=== PATIENT | female | born 1995 | race Caucasian/White ===

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

== ENCOUNTER 2017-03-20 11:33 | Emergency (ER) | payer OTHER, MEDICAID ==
[2017-03-20 11:49] VITALS: RESP 16
--- NOTE | 2017-03-20 12:28 | EDPHY ---
H & P Time Seen by Provider: 03/20/17 11:53 HPI/ROS: CHIEF COMPLAINT: Abdominal pain, diarrhea HISTORY OF PRESENT ILLNESS: 21-year-old female presents to the emergency department complaining of headache, diffuse abdominal pain and diarrhea over the last 1 week. The patient states that she now has right lower quadrant abdominal pain over last few days that is getting worse. No back pain. No urinary symptoms. No chest pain or difficulty breathing. She states that she has had episodes of watery diarrhea and then has had episodes of constipation. Her last bowel movement was 2 days ago. No recent travel. No recent antibiotic use. Last menstrual period was 2 weeks ago and she denies . Denies urinary symptoms. REVIEW OF SYSTEMS: Constitutional: No fever, no chills. Eyes: No double or blurry vision. ENT: No sore throat. Respiratory: No cough, no shortness of breath. Cardiac: No chest pain. Gastrointestinal: Abdominal pain and diarrhea as above. No vomiting. Nausea. Genitourinary: No dysuria. Musculoskeletal: No neck or back pain. Skin: No rashes. Neurological: No headache. Past Medical/Surgical History: Negative Social History: Single Smoking Status: Former smoker Physical Exam: General Appearance: Alert, no distress. Afebrile. Eyes: Pupils equal and round. Extraocular motions are all intact. ENT: Mouth: Mucous membranes moist. Respiratory: No wheezing, rhonchi, or rales, lungs are clear to auscultation. Cardiovascular: Regular rate and rhythm. Gastrointestinal: Abdomen is soft. She has tenderness with palpation in the right lower quadrant. There is no rebound, guarding or masses noted. No CVA tenderness bilaterally. Neurological: Alert and oriented x 3, cranial nerves II through XII grossly intact Skin: Warm and dry, no rashes. Musculoskeletal: Nontender to palpate along the cervical, thoracic or lumbar spine. Neck is supple. Extremities: Full range of motion and no peripheral edema. Psychiatric: Patient is oriented X 3, there is no agitation. Constitutional: Initial Vital Signs Temperature (C) 36.3 C 03/20/17 11:46 Heart Rate 92 03/20/17 11:46 Respiratory Rate 16 03/20/17 11:46 Blood Pressure 99/67 L 03/20/17 11:46 O2 Sat (%) 98 03/20/17 11:46 O2 Delivery Mode Room Air Allergies/Adverse Reactions: No Known Allergies Allergy (Verified 03/20/17 11:46) Home Medications: Medication Instructions Recorded Mircette 28 Day Tablet 01/21/16 Medical Decision Making - Diagnostics Imaging Results: Imaging Impressions Abdomen CT 03/20/17 13:14 Impression: 1. No acute findings in the abdomen or pelvis. 2. Mild stool in the proximal colon. 3. Additional findings as above. Findings discussed with Jasmyne Patel PA-C on March 20, 2017 at 1359 hours. Imaging: Discussed imaging studies w/ call center assistant Radiologist ED Course/Re-evaluation: 21-year-old female presents to the emergency department with abdominal pain. The pain is located in her right lower quadrant. I was concerned about possible acute appendicitis. I discussed the pros and cons of CT imaging of her abdomen and pelvis including radiation exposure and the patient agrees CT scan. CT imaging of the abdomen pelvis was within normal limits. Normal appendix. The patient was given Toradol 30 mg IV as well as some IV Zofran. She was feeling better. She was discharged home and was given the name of primary care provider that she can follow up with. She was instructed to return to the emergency department sooner if she had any change in symptoms or if she felt worse in any way. Differential Diagnosis: Including but not limited to acute appendicitis, urinary tract infection, ovarian cyst, ovarian torsion, pyelonephritis, kidney stone - Data Points Laboratory Results: Laboratory Results 03/20/17 12:11 03/20/17 12:11 03/20/17 03/20/17 03/20/17 13:08 12:11 12:11 WBC RBC Hgb Hct MCV MCH MCHC RDW Plt Count MPV Neut % (Auto) Lymph % (Auto) [place] % (Auto) Eos % (Auto) Baso % (Auto) Nucleat RBC Rel Count Absolute Neuts (auto) Absolute Lymphs (auto) Absolute Monos (auto) Absolute Eos (auto) Absolute Basos (auto) Absolute Nucleated RBC Immature Gran % Immature Gran # Sodium 141 mEq/L mEq/L (134-144) Potassium 4.2 mEq/L mEq/L (3.5-5.2) Chloride 105 mEq/L mEq/L (97-110) Carbon Dioxide 22 mEq/l mEq/l (22-31) Anion Gap 14 mEq/L mEq/L (8-16) BUN 14 mg/dL mg/dL (7-23) Creatinine 0.7 mg/dL mg/dL (0.6-1.0) Estimated GFR > 60 Glucose 78 mg/dL mg/dL (70-100) Calcium 9.7 mg/dL mg/dL (8.5-10.4) Beta HCG, Qual NEGATIVE Urine Color YELLOW Urine Appearance MODERATELY TURBID Urine pH 8.0 H (5.0-7.5) Ur Specific [place] 1.012 (1.002-1.030) Urine Protein NEGATIVE (NEGATIVE) Urine Ketones NEGATIVE (NEGATIVE) Urine Blood NEGATIVE (NEGATIVE) Urine Nitrate NEGATIVE (NEGATIVE) Urine Bilirubin NEGATIVE (NEGATIVE) Urine Urobilinogen NEGATIVE EU EU (0.2-1.0) Ur Leukocyte Esterase NEGATIVE (NEGATIVE) Urine RBC 15-25 /hpf H /hpf (0-3) Urine WBC 1-3 /hpf /hpf (0-3) Ur Epithelial Cells 2+ /lpf H /lpf (NONE-1+) Urine Glucose NEGATIVE (NEGATIVE) 03/20/17 12:11 WBC 5.58 10^3/uL 10^3/uL (3.80-9.50) RBC 4.70 10^6/uL 10^6/uL (4.18-5.33) Hgb 15.6 g/dL g/dL (12.6-16.3) Hct 43.8 % % (38.0-47.0) MCV 93.2 fL fL (81.5-99.8) MCH 33.2 pg pg (27.9-34.1) MCHC 35.6 g/dL g/dL (32.4-36.7) RDW 13.2 % % (11.5-15.2) Plt Count 267 10^3/uL 10^3/uL (150-400) MPV 10.6 fL fL (8.7-11.7) Neut % (Auto) 41.6 % % (39.3-74.2) Lymph % (Auto) 44.6 % % (15.0-45.0) [place] % (Auto) 9.7 % % (4.5-13.0) Eos % (Auto) 3.0 % % (0.6-7.6) Baso % (Auto) 0.9 % % (0.3-1.7) Nucleat RBC Rel Count 0.0 % % (0.0-0.2) Absolute Neuts (auto) 2.32 10^3/uL 10^3/uL (1.70-6.50) Absolute Lymphs (auto) 2.49 10^3/uL 10^3/uL (1.00-3.00) Absolute Monos (auto) 0.54 10^3/uL 10^3/uL (0.30-0.80) Absolute Eos (auto) 0.17 10^3/uL 10^3/uL (0.03-0.40) Absolute Basos (auto) 0.05 10^3/uL 10^3/uL (0.02-0.10) Absolute Nucleated RBC 0.00 10^3/uL 10^3/uL (0-0.01) Immature Gran % 0.2 % % (0.0-1.1) Immature Gran # 0.01 10^3/uL 10^3/uL (0.00-0.10) Sodium Potassium Chloride Carbon Dioxide Anion Gap BUN Creatinine Estimated GFR Glucose Calcium Beta HCG, Qual Urine Color Urine Appearance Urine pH Ur Specific [place] Urine Protein Urine Ketones Urine Blood Urine Nitrate Urine Bilirubin Urine Urobilinogen Ur Leukocyte Esterase Urine RBC Urine WBC Ur Epithelial Cells Urine Glucose Medications Given: Discontinued Medications Sodium Chloride (Ns) 1,000 mls @ 0 mls/hr IV EDNOW ONE PRN Reason: Wide Open Stop: 03/20/17 12:39 Last Admin: 03/20/17 12:39 Dose: 1,000 mls Ketorolac Tromethamine (Toradol) 30 mg IVP EDNOW ONE Stop: 03/20/17 14:00 Last Admin: 03/20/17 14:10 Dose: 30 mg Ondansetron HCl (Zofran) 4 mg IVP EDNOW ONE Stop: 03/20/17 14:33 Last Admin: 03/20/17 15:01 Dose: 4 mg Departure - Departure Disposition: Home, Routine, Self-Care Clinical Impression: Abdominal pain Qualifiers: Abdominal location: right lower quadrant Qualified Code(s): R10.31 - Right lower quadrant pain Condition: Good Instructions: Acute Abdominal Pain (ED) Additional Instructions: Abdominal Pain: Return to the Emergency Department immediately for increasing pain, fever, vomiting, or if not completely better in 8-12 hours. 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
[2017-03-20 12:32] LABS: PLATELET COUNT 267 10^3/uL (150-400)
[2017-03-20] MEDS ORDERED: NS 1,000 ML IV ONE (12:38)
[2017-03-20] MEDS ORDERED: IOPAMIDOL (ISOVUE-300) 100 ML BTL ONE (13:19)
[2017-03-20] MEDS ORDERED: KETOROLAC 30 MG/1 ML SDV IVP ONE (13:59)
[2017-03-20] MEDS ORDERED: ONDANSETRON 4 MG/2 ML VIAL IVP ONE (14:32)
[2017-03-20 15:30] VITALS: BP 90/55; PULSE 64; TEMP 97.9; O2SAT 94
== END 2017-03-20 15:29 | disposition home or self-care (01) ==
DX: R10.31 Right lower quadrant pain (principal); E86.9 Volume depletion, unspecified; Z87.891 Personal history of nicotine dependence
CPT/HCPCS: 96374; J1885; J2405; Q9967

== ENCOUNTER 2017-04-13 08:28 | Emergency (ER) | payer OTHER, MEDICAID ==
[2017-04-13 08:43] VITALS: O2SAT 98
--- NOTE | 2017-04-13 09:03 | EDPHY ---
H & P Stated Complaint: low abd pain n/v since last night , ~5 weeks preg - Personal History LMP (Females 10-55): Current Tetanus/Diphtheria Vaccine: Unsure Current Tetanus Diphtheria and Acellular Pertussis (TDAP): Unsure - Medical/Surgical History Hx Asthma: No Hx Chronic Respiratory Disease: No Hx Diabetes: No Hx Cardiac Disease: No Hx Renal Disease: No Hx Cirrhosis: No Hx Alcoholism: No Hx HIV/AIDS: No Hx Splenectomy or Spleen Trauma: No Other PMH: PMHx: sinus infection 01/27. PSHx: denies - Social History Smoking Status: Former smoker Time Seen by Provider: 04/13/17 08:54 HPI/ROS: CHIEF COMPLAINT: Abdominal pain, nausea, vomiting HISTORY OF PRESENT ILLNESS: 21-year-old currently 5-6 weeks per last menstrual. Complaining of 2 weeks of abdominal cramping, nausea, vomiting. Positive intermittent vaginal discharge not described as definitively bloody. Has not seen her OBGYN yet. No Back or flank pain. No urinary abnormality. No fever no chills. No trauma. PRIMARY CARE PROVIDER: REVIEW OF SYSTEMS: A ten point review of systems was performed and is negative with the exception of the items mentioned in the HPI PAST MEDICAL & SURGICAL HISTORY: currently 5 6 weeks per allergy SOCIAL HISTORY: single PHYSICAL EXAM (Prior to examination, patient consented to physical exam, hands were washed and my usual and customary physical exam procedures followed) 1) GENERAL: Well-developed, well-nourished, alert and oriented. Appears to be in no acute distress. 2) HEAD: Normocephalic, atraumatic 3) HEENT: Pupils equal, round, reactive to light bilaterally. Sclera anicteric. Nasopharynx, oropharynx, clear, no lesions. Dry mucous membranes 4) NECK: Full range of motion, no meningeal signs. 5) LUNGS: Clear auscultation bilaterally, no wheezes, no rhonchi, no retractions. 6) HEART: Regular rate and rhythm, no murmur, no heave, no gallop. 7) ABDOMEN: No guarding, mild tenderness to palpation suprapubic region, negative McBurney's, negative Moon's, negative Rovsing's, negative peritoneal sign, 8) MUSCULOSKELETAL: Moving all extremities, no focal areas of tenderness, no obvious trauma. No peripheral edema or discoloration. 9) BACK: No CVA tenderness, no midline vertebral tenderness, no fluctuance, no step-off, no obvious trauma, no visual or palpable abnormality. 10) SKIN: No rash, no petechiae. [11) Psychiatric: Patient is oriented X 3, there is no agitation. DIFFERENTIAL DIAGNOSIS: My differential diagnosis includes, but is not limited to, acute appendicitis, hyperemesis gravidarum, acute cholecystitis, bowel obstruction, acute pancreatitis, ovarian torsion, ectopic , gastritis and urinary tract infection. The patient understands that this diagnosis is provisional and can never be 100% accurate. This is a partial list of diagnoses considered. These considerations are based on history, physical exam, past history and reassessment. (Lana Mitchell) Constitutional: Initial Vital Signs Temperature (C) 37.0 C 04/13/17 08:40 Heart Rate 84 04/13/17 08:40 Respiratory Rate 16 04/13/17 08:40 Blood Pressure 98/62 L 04/13/17 08:40 O2 Sat (%) 98 04/13/17 08:40 O2 Delivery Mode Room Air Allergies/Adverse Reactions: No Known Allergies Allergy (Verified 03/20/17 11:46) Home Medications: Medication Instructions Recorded Ondansetron Odt [Zofran Odt] 4 mg PO Q4PRN PRN #10 tab 04/13/17 Promethazine HCl [Phenergan] 25 mg PO Q6 #10 tab 04/13/17 Medical Decision Making - Diagnostics Imaging Results: Images reviewed by myself (Lana Mitchell) ED Course/Re-evaluation: 9:02 a.m.: Will obtain diagnostic studies including ultrasound. Care of patient under supervision of secondary supervising physician Dr Whelan with Whom I discussed case . 10:49 a.m.: Patient has been re-evaluated with serial exams. Discussed her imaging results showing no definitive signs of ectopic however we discussed the limitations of ultrasound at gestational age of approximately 6 weeks. Also discussed with patient viability is not discernible at this time due to gestational age. She has an OBGYN. Today is Sunday. Recommend she follow up with her OBGYN on Sunday for further evaluation, she will more than likely necessitate further repeat ultrasound and HCG. She is noted to have Rh positive lab value. She is able tolerate oral intake. She will be discharged with oral Zofran prescription. Doubt acute surgical abdominal pathology such as acute appendicitis, acute cholecystitis. I do not think that further imaging studies indicated at this time. Nonetheless usual and customary abdominal precautions and instructions provided. (Lana Mitchell) The patient was evaluated and managed by the physician salon assistant. I have reviewed this chart and I agree with the findings and plan of care as documented , as indicated by my signature. I am the secondary supervising physician. ( Holli Whelan) - Data Points Laboratory Results: Laboratory Results 04/13/17 09:20 04/13/17 09:20 Departure - Departure Disposition: Home, Routine, Self-Care Clinical Impression: Vomiting affecting , antepartum, Volume depletion Condition: Good Instructions: Promethazine (By mouth), Hyperemesis Gravidarum (ED) Additional Instructions: If you develop vaginal bleeding, abdominal pain, lightheadedness, passing out, or any other symptoms, you need to seek immediate medical attention. Please follow-up with your OBGYN on Sunday. You will more than likely necessitate repeat diagnostic studies. Referrals: Radha Pacheco MD [Medical Doctor] - 04/16/17 Stand Alone Forms: Work Excuse Prescriptions: Ondansetron Odt [Zofran Odt] 4 mg PO Q4PRN PRN #10 tab PRN Reason: Nausea Promethazine HCl [Phenergan] 25 mg PO Q6 #10 tab
[2017-04-13 09:31] LABS: % IMMATURE GRANULYOCYTES 0.1 % (0.0-1.1); ABSOLUTE IMMATURE GRANULOCYTES 0.01 10^3/uL (0.00-0.10); ADD DIFF? NO; ADD MORPH? NO; ADD SCAN? NO; ATYPICAL LYMPHOCYTE FLAG 10 (0-99); FRAGMENT RBC FLAG 0 (0-99); HEMATOCRIT 43.5 % (38.0-47.0); HEMOGLOBIN 15.6 g/dL (12.6-16.3); LEFT SHIFT FLG 0 (0-99); LIPEMIA HEMOLYSIS FLAG 90 (0-99); MEAN CELL HEMOGLOBIN CONCENTR. 35.9 g/dL (32.4-36.7); MEAN PLATELET VOLUME 10.6 fL (8.7-11.7); PLATELET CLUMPS FLAG 0 (0-99); PLATELET COUNT 263 10^3/uL (150-400); RED BLOOD CELL COUNT 4.73 10^6/uL (4.18-5.33)
[2017-04-13 09:51] LABS: ALANINE AMINOTRANSFERASE 33 IU/L (9-52); ALBUMIN 4.8 g/dL (3.5-5.0); ALKALINE PHOSPHATASE 87 IU/L (38-126); ANION GAP 15 mEq/L (8-16); ASPARTATE AMINOTRANSFERASE 23 IU/L (14-46); BILIRUBIN,TOTAL 0.6 mg/dL (0.1-1.4); BILIRUBIN-CONJUGATED 0.1 mg/dL (0.0-0.5); BILIRUBIN-UNCONJUGATED 0.5 mg/dL (0.0-1.1); CALCIUM 9.9 mg/dL (8.5-10.4); CARBON DIOXIDE 19 mEq/l (22-31); CHLORIDE 104 mEq/L (97-110); CREATININE 0.6 mg/dL (0.6-1.0); GLOMERULAR FILTRATION RATE > 60; GLUCOSE 74 mg/dL (70-100); POTASSIUM 4.1 mEq/L (3.5-5.2); SODIUM 138 mEq/L (134-144)
[2017-04-13 10:46] LABS: COLOR YELLOW; LEUKOCYTE ESTERASE,URINE NEGATIVE (NEGATIVE); NITRITE,URINE NEGATIVE (NEGATIVE)
[2017-04-13 10:50] LABS: MUCUS 1+ /lpf (NONE-1+); RBC,URINE 15-25 /hpf (0-3)
[2017-04-13 12:26] VITALS: BP 92/49; PULSE 78; RESP 18; TEMP 98.4
== END 2017-04-13 12:27 | disposition home or self-care (01) ==
DX: O21.1 Hyperemesis gravidarum with metabolic disturbance (principal); Z3A.01 Less than 8 weeks gestation of pregnancy; Z87.891 Personal history of nicotine dependence

== ENCOUNTER 2017-08-26 20:39 | Observation (INO) | payer OTHER, MEDICAID ==
[2017-08-26] MEDS ORDERED: TERBUTALINE SULFATE 1 MG/ML VIAL SC ONE (21:00)
[2017-08-26] MEDS ORDERED: LR 1,000 ML IV SCH (21:30)
[2017-08-26 21:31] LABS: PLATELET COUNT 206 10^3/uL (150-400)
--- NOTE | 2017-08-26 22:58 | OBPROG ---
Labor Progress Note Assessment/Plan: Assessment: IUP at 25 + wks low abd cramping after sex with increased salt this afternoon amnisure neg Plan: FFN, GBS done and cx looked closed. Pt d/c home - call with any increased s/s of labor 08/26/17 22:54 Subjective/Intrapartum Course: 08/26/17 22:56 Pt doing much better for approx the last half hour. cramps really have abated and no nausea/emesis. giorgio liquids well. no bleeding. reassured about no ROM. desires to d/c home Objective: 08/26/17 21:00 - SVE Dilation (cm): 0 Membranes: Intact - Contraction Pattern Assessment Current Contraction Pattern: Other (Specify) (none now - was q 2-3 min) - FHR Assessment [place] FHR (bpm): 140 (after recent CHRISTIN, b/p dropped to 8o/50s) FHR Pattern Variability: Minimal FHR Category: 2 Oxytocin Orders Assessment - Pre-Induction/Augmentation Assessment Gestational Age: 25 week(s) and 0 day(s) ICD10 Worksheet Patient Problems: Problems Problem Status Onset uterine contractions Acute
== END 2017-08-26 23:10 | disposition home or self-care (01) ==
LOC: FLD 20:39
PROVIDERS: ADMIT Obstetrics & Gynecology; ATTEND Obstetrics & Gynecology
DX: O99.89 Other specified diseases and conditions complicating pregnancy, childbirth and the puerperium (principal); R10.9 Unspecified abdominal pain; Z3A.25 25 weeks gestation of pregnancy
CPT/HCPCS: G0378 ×2; J3105

== ENCOUNTER 2017-09-13 10:25 | Observation (INO) | payer OTHER, MEDICAID ==
[2017-09-13] MEDS ORDERED: LR 1,000 ML IV ONE (11:30)
[2017-09-13] MEDS ORDERED: ONDANSETRON 4 MG/2 ML VIAL ONE (11:43)
[2017-09-13] MEDS ORDERED: ONDANSETRON 4 MG/2 ML VIAL IVP PRN (11:43)
[2017-09-13 12:05] LABS: PLATELET COUNT 188 10^3/uL (150-400)
--- NOTE | 2017-09-13 12:23 | PDGENHP ---
History and Physical History and Physical: CARE: [facility] HPI: Patient is a 21 yo with IUP@27+wks that presents to L&D with complaints of nausea/vomiting/diarrhea since early this morning. She does report some mild cramps. She denies any LOF, VB. Reports +FM. She denies any sick contacts or eating anything bad. She denies any fever/chills/body aches. She denies any headaches, visual changes, epigastric pain. EDC: 12/09/17 which is based on LMP: 03/04/17 which is known and consistent with Ultrasound at 9 weeks. Her is complicated by: low BMI, hx of back injury, h/o migraines, frequent UTIs Review of Systems: Constitutional: Denies any fever, chills, or fatigue HEENT: denies any visual changes, difficulty swallowing, hearing loss Cardiovascular: Denies any chest pain, palpitations, leg swelling Respiratory: denies any cough, wheezing, or shortness of breathe GI: Denies any nausea, vomiting, diarrhea, constipation : denies any dysuria, urgency, frequency, vaginal bleeding Musculoskeletal: denies any muscle or bone pain Skin: denies any rashes Neuro: denies any headache, seizures, lightheadedness, dizziness, or loss of consciousness Psychiatric: denies any depression, anxiety, or SI/HI thoughts HISTORY: Previous OB history: G1 Past medical history: migraines, low BMI, hx of back injury Past surgical history: none Medications: PNV Allergies (list reaction): NKDA LABS: Rh: O+ ABS: Neg Rubella: Immune HbsAg: NR HIV: NR VDRL: NR 1hr: 98 GC: Neg Chlamydia: Neg GBS: unknown PHYSICAL EXAM: Constitutional: WN, A&Ox3 HEENT: normocephalic atraumatic, supple Heart: RRR, no murmur Chest: CTA-B Abdomen: Soft, nontender, gravid SVE: deferred Extremities: no edema, negative homans sign Neuro: grossly normal Psych: normal affect assessment: Reassuring FHTs, 130 Assessment: 1) [id number] with IUP@27wks 2) N/V/D- improved with IV fluids and antiemetics 3) +FHTs 4) likely GI virus Plan: 1) d/c home at this time 2) bland diet/increase fluids 3) f/u in office at next sched appt 4) FKC and PTL prec discussed
[2017-09-13] MEDS ORDERED: METOCLOPRAMIDE 10 MG/2 ML VIAL IVP ONE (12:56)
== END 2017-09-13 15:00 | disposition home or self-care (01) ==
LOC: FLD 10:25
PROVIDERS: ADMIT Advanced Practice Midwife; ATTEND Advanced Practice Midwife
DX: O99.89 Other specified diseases and conditions complicating pregnancy, childbirth and the puerperium (principal); R11.2 Nausea with vomiting, unspecified; R19.7 Diarrhea, unspecified; Z87.440 Personal history of urinary (tract) infections; Z3A.27 27 weeks gestation of pregnancy
CPT/HCPCS: 76815; G0378; J2405; J2765

== ENCOUNTER 2017-10-18 12:59 | Emergency (ER) | payer MEDICAID, OTHER ==
[2017-10-18] MEDS ORDERED: NS 1,000 ML IV ONE (13:49)
--- NOTE | 2017-10-18 14:00 | EDPHY ---
H & P Stated Complaint: SOB, dizzy, N/V Time Seen by Provider: 10/18/17 13:49 HPI/ROS: CHIEF COMPLAINT: Dizziness HISTORY OF PRESENT ILLNESS: 22-year-old female 32 weeks presents with dizziness. This morning she was sitting at her desk at work when she developed 3 episodes of transient lower abdominal pain. Associated with dry heaves and shortness of breath. The shortness of breath and abdominal pain have resolved and she no longer feels nauseated. Afterwards, she began to feel dizzy and still feels dizzy, like she might faint. She ate and drink normally today. No vaginal bleeding. No recent illness. REVIEW OF SYSTEMS: complete 10 point ROS negative except at noted in the HPI - Personal History LMP (Females 10-55): Current Tetanus/Diphtheria Vaccine: Yes Current Tetanus Diphtheria and Acellular Pertussis (TDAP): Yes - Medical/Surgical History Hx Asthma: Yes Hx Chronic Respiratory Disease: No Hx Diabetes: No Hx Cardiac Disease: No Hx Renal Disease: No Hx Cirrhosis: No Hx Alcoholism: No Hx HIV/AIDS: No Hx Splenectomy or Spleen Trauma: No Other PMH: Asthma, HX OF BACK SURGERY( REALIGNMENT OF SPINE), HX; OF HSV TYPE 2 ONE OUTBREAK IN 2016, HX: OF MIGRAINES - AT LEAST ONE x MONTH, FREQUENT UTI'S - Social History Smoking Status: Former smoker Alcohol Use: Sober Drug Use: None - Physical Exam Exam: General Appearance: Alert, pleasant Eyes: Pupils equal and round, conjunctival pallor ENT, Mouth: Mucous membranes moist Neck: Normal inspection Respiratory: Lungs are clear to auscultation Cardiovascular: Regular rate and rhythm Gastrointestinal: Abdomen is soft, gravid and nontender Neurological: A&O, nonfocal exam Skin: Warm and dry Extremities: Right foot and postop shoe, no calf swelling or tenderness Psychiatric: Mood and affect normal Constitutional: Initial Vital Signs Temperature (C) 36.4 C 10/18/17 13:07 Heart Rate 71 10/18/17 13:07 Respiratory Rate 16 10/18/17 13:07 Blood Pressure 84/51 L 10/18/17 13:07 O2 Sat (%) 96 10/18/17 13:07 O2 Delivery Mode Room Air Allergies/Adverse Reactions: No Known Allergies Allergy (Verified 10/18/17 13:07) Home Medications: Medication Instructions Recorded Iron 10/18/17 10/18/17 Medical Decision Making - Diagnostics EKG Interpretation: EKG interpreted by me reveals normal sinus rhythm, rate 81, nonspecific T-wave changes in the anterior leads. Interpretation: Abnormal EKG Imaging Results: Imaging Impressions Extremity Venous Study 10/18/17 14:03 Impression: No deep venous thrombosis left leg. Obstetrics Ultrasound 10/18/17 14:03 Impression: 1. Living raines in vertex presentation. 2. EGA from US is 32 weeks 3 days, which is concordant with LMP. 3. No overt anomalies detected. 4. Estimated delivery date is December 09, 2017. Findings and recommendations discussed with VINI HIGUERA at 1541 hour, 2017. Final report concurs with initial preliminary interpretation. Imaging: Discussed imaging studies w/ medical customer service representative Radiologist, I viewed and interpreted images myself ED Course/Re-evaluation: This patient presents with hypotension after an episode of lower abdominal pain , dry heaves and shortness of breath. Initial vital signs are normal, including oxygen saturation. She is no longer short of breath. Unclear etiology of the hypotension. She has been eating and drinking normally. Abdominal exam is normal, so I do not suspect placental abruption. She is no longer short of breath, so I doubt pulmonary embolism. However she recently had a foot fracture and is wearing a postoperative shoe, so I will initially obtain a lower extremity ultrasound to rule out DVT. IV normal saline 1 L given for possible dehydration. 1500: feels better, awaiting sono results. Blood sugar 58, hypoglycemia could certainly cause dizziness. Juice and crackers given. 1545: sono's unremarkable. Ambulated pt in ED, not SOB or dizzy, O2 sat 95% RA. BP 105/45. Feels back to normal. I feel that she is safe/stable for d/c home. Likely hypoglycemia/dehydration causing sx today. Warning signs discussed. Differential Diagnosis: Dizziness including but not limited to peripheral and central causes of vertigo , orthostatic causes including dehydration, hypoglycemia, pulmonary embolism, placental abruption and blood loss. - Data Points Laboratory Results: Laboratory Results 10/18/17 13:45 10/18/17 13:45 10/18/17 10/18/17 13:45 13:45 WBC 9.93 10^3/uL H 10^3/uL (3.80-9.50) RBC 3.53 10^6/uL L 10^6/uL (4.18-5.33) Hgb 10.6 g/dL L g/dL (12.6-16.3) Hct 31.8 % L % (38.0-47.0) MCV 90.1 fL fL (81.5-99.8) MCH 30.0 pg pg (27.9-34.1) MCHC 33.3 g/dL g/dL (32.4-36.7) RDW 14.0 % % (11.5-15.2) Plt Count 171 10^3/uL 10^3/uL (150-400) MPV 12.4 fL H fL (8.7-11.7) Neut % (Auto) 68.4 % % (39.3-74.2) Lymph % (Auto) 22.2 % % (15.0-45.0) Emmet % (Auto) 7.9 % % (4.5-13.0) Eos % (Auto) 0.6 % % (0.6-7.6) Baso % (Auto) 0.2 % L % (0.3-1.7) Nucleat RBC Rel Count 0.0 % % (0.0-0.2) Absolute Neuts (auto) 6.80 10^3/uL H 10^3/uL (1.70-6.50) Absolute Lymphs (auto) 2.20 10^3/uL 10^3/uL (1.00-3.00) Absolute Monos (auto) 0.78 10^3/uL 10^3/uL (0.30-0.80) Absolute Eos (auto) 0.06 10^3/uL 10^3/uL (0.03-0.40) Absolute Basos (auto) 0.02 10^3/uL 10^3/uL (0.02-0.10) Absolute Nucleated RBC 0.00 10^3/uL 10^3/uL (0-0.01) Immature Gran % 0.7 % % (0.0-1.1) Immature Gran # 0.07 10^3/uL 10^3/uL (0.00-0.10) Sodium 136 mEq/L mEq/L (135-145) Potassium 3.7 mEq/L mEq/L (3.3-5.0) Chloride 108 mEq/L mEq/L (97-110) Carbon Dioxide 20 mEq/l L mEq/l (22-31) Anion Gap 8 mEq/L mEq/L (8-16) BUN 9 mg/dL mg/dL (7-23) Creatinine 0.5 mg/dL L mg/dL (0.6-1.0) Estimated GFR > 60 Glucose 58 mg/dL L mg/dL (70-100) Calcium 9.0 mg/dL mg/dL (8.5-10.4) Medications Given: Discontinued Medications Sodium Chloride (Ns) 1,000 mls @ 0 mls/hr IV ONCE ONE; Wide Open PRN Reason: Protocol Stop: 10/18/17 13:50 Last Admin: 10/18/17 14:07 Dose: 1,000 mls Departure - Departure Disposition: Home, Routine, Self-Care Clinical Impression: Dizziness, Hypoglycemia Condition: Good Instructions: Non-diabetic Hypoglycemia (ED), Dizziness (ED) Additional Instructions: Eat 3 meals daily with frequent snacks. Drink plenty of water. Return for recurrent symptoms or any concerns. Referrals: NONE *PRIMARY CARE P,. [Primary Care Provider] - As per Instructions Stand Alone Forms: Work Excuse
--- NOTE | 2017-10-18 14:08 | CPEKG ---
Heart Rate: 81 RR Interval: 741 P-R Interval: 136 QRSD Interval: 72 QT Interval: 372 QTC Interval: 432 P Andover: 42 QRS Andover: 54 T Wave Andover: 5 EKG Severity - ABNORMAL ECG - EKG Impression: SINUS RHYTHM EKG Impression: NONSPECIFIC T ABNORMALITIES, ANTERIOR LEADS Electronically Signed By: Betina Chirinos 18-Oct-2017 18:38:02
[2017-10-18 14:27] LABS: PLATELET COUNT 171 10^3/uL (150-400)
[2017-10-18 15:54] VITALS: BP 102/64
== END 2017-10-18 16:05 | disposition home or self-care (01) ==
DX: O26.813 Pregnancy related exhaustion and fatigue, third trimester (principal); O99.283 Endocrine, nutritional and metabolic diseases complicating pregnancy, third trimester; E16.2 Hypoglycemia, unspecified; E86.9 Volume depletion, unspecified; J45.909 Unspecified asthma, uncomplicated; Z3A.32 32 weeks gestation of pregnancy; Z87.891 Personal history of nicotine dependence

== ENCOUNTER 2017-10-26 14:05 | Observation (INO) | payer OTHER ==
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
== END 2017-10-26 17:30 | disposition home or self-care (01) ==
LOC: FLD 14:05
PROVIDERS: ADMIT Obstetrics & Gynecology; ATTEND Obstetrics & Gynecology
DX: O47.03 False labor before 37 completed weeks of gestation, third trimester (principal); O99.013 Anemia complicating pregnancy, third trimester; D50.9 Iron deficiency anemia, unspecified; Z3A.33 33 weeks gestation of pregnancy
CPT/HCPCS: 59025; 76815; G0378

== ENCOUNTER 2017-11-25 19:37 | Observation (INO) | payer MEDICAID ==
--- NOTE | 2018-01-07 17:02 | GDS ---
[f rep st] DISCHARGE SUMMARY The patient was discharged home on November, in stable condition. Labor precautions were given. /[id number]/MODL
== END 2017-11-25 21:05 | disposition home or self-care (01) ==
LOC: FLD 19:37
PROVIDERS: ADMIT Obstetrics & Gynecology; ATTEND Obstetrics & Gynecology
DX: O26.893 Other specified pregnancy related conditions, third trimester (principal); M54.9 Dorsalgia, unspecified; Z3A.38 38 weeks gestation of pregnancy
CPT/HCPCS: 59025; G0378

== ENCOUNTER 2017-12-05 16:56 | Inpatient (IN) | payer OTHER, MEDICAID ==
[2017-12-05] MEDS ORDERED: OXYTOCIN/RINGERS LACTATE 1,000 ML IV PRN (17:04)
[2017-12-05] MEDS ORDERED: AMMONIA AROMATIC 1 EACH AMP IH PRN (17:04)
[2017-12-05] MEDS ORDERED: OLIVE OIL 118 ML BTL MISC PRN (17:04)
[2017-12-05] MEDS ORDERED: TERBUTALINE SULFATE 1 MG/ML VIAL IV PRN (17:04)
[2017-12-05] MEDS ORDERED: EPSOM SALT 454 GM TP PRN (17:04)
[2017-12-05] MEDS ORDERED: LIDOCAINE 1% 300 MG/30 ML SDV SC PRN (17:04)
[2017-12-05] MEDS ORDERED: LR 1,000 ML IV PRN (17:04)
[2017-12-05] MEDS ORDERED: IBUPROFEN 600 MG TAB PO PRN (17:04)
[2017-12-05] MEDS ORDERED: MISOPROSTOL 200 MCG TAB PO PRN (17:04)
[2017-12-05] MEDS: MISOPROSTOL 100 MCG TAB PO SCH (17:54)
[2017-12-05 18:11] LABS: PLATELET COUNT 203 10^3/uL (150-400)
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
[2017-12-05] MEDS ORDERED: ACETAMINOPHEN 500 MG TAB PO ONE (21:30)
[2017-12-05] MEDS ORDERED: LR 500 ML IV PRN (22:50)
[2017-12-05] MEDS ORDERED: OXYTOCIN/RINGERS LACTATE 500 ML IV SCH (23:00)
[2017-12-05] MEDS ORDERED: fentaNYL 100 MCG/2 ML INJ IVP ONE (23:15)
[2017-12-06] MEDS: MISOPROSTOL 100 MCG TAB PO SCH ×3 (00:25→17:39)
[2017-12-06] MEDS ORDERED: fentaNYL 100 MCG/2 ML INJ IVP PRN (07:41)
--- NOTE | 2017-12-06 07:42 | OBPROG ---
Labor Progress Note Assessment/Plan: Assessment: [id number] with IUP@ 39-4wks IOL 2/2 IUGR with abnormal dopplers cat 1 FHR tracing GBS negative Plan: gray bulb/pitocin CHRISTIN PRN reasses 2-4hr/PRN 12/06/17 10:40 Subjective/Intrapartum Course: 12/06/17 10:38 pt doing well, denies any pain at this time. She requested pitocin to be turned off. We discussed need for pitocin and gray balloon due to cervical exam. Pt agreeable with placement under fentanyl. Pts mother @ BS and supportive. Objective: 12/05/17 17:45 Patient ABO/Rh O POSITIVE 12/05/17 17:45 - SVE Dilation (cm): 1 Effacement (%): 0 Station: -3 - Contraction Pattern Assessment Current Contraction Pattern: Irregular - Procedures Non-surgical Procedures: Other (Specify) (gray balloon with 40mL placed) Oxytocin Orders Assessment - Pre-Induction/Augmentation Assessment Presentation: Vertex Gestational Age: 39 week(s) and 3 day(s) Membrane Status: Intact Current Sterile Vaginal Exam (SVE): 1/th/high - Patton's Score Dilation: 1-2cm Effacement: 0-30 Station: -3 Cervix: Firm Cervix Position: Mid Patton Score Total: 2 - Induction/Augmentation Consent Risks/Benefits of Procedure Reviewed/Pt Agrees to Proceed: Yes ICD10 Worksheet Patient Problems: Problems Problem Status Onset uterine contractions Acute
[2017-12-06] MEDS ORDERED: PHENYLEPHRINE HCL 100 MCG/ML SYR ONE (09:43)
[2017-12-06] MEDS ORDERED: BUPIVACAINE 0.25% 30 ML SDV ONE (09:43)
[2017-12-06] MEDS ORDERED: fentaNYL 200 MCG, BUPIVACAINE 0.5% 20 ML in NS 100 ML EP SCH (10:30)
[2017-12-06] MEDS ORDERED: PHENYLEPHRINE HCL 100 MCG/ML SYR IVP PRN (10:51)
[2017-12-06] MEDS ORDERED: ONDANSETRON 4 MG/2 ML VIAL IVP PRN (10:51)
--- NOTE | 2017-12-06 10:58 | PREANESOB ---
Obstetric Pre-Anesthesia Info - General Info Proposed Procedure: Labor and delivery. : 1 Para: 0 SKIP: 12/09/17 Gestational Age: 39 week(s) and 3 day(s) - Info Status: Full Term Monitors: External FHR Baseline (bpm): 135 FHR Pattern: Reassuring - Labor Status Cervical Dilation per last OB SVE: 1 Station per last OB SVE: -3 Pitocin: Planned Indications for Labor Analgesia: Induction of Labor, Pain Control Labor Epidural: Proposed Anesthesia ROS: Prior general anesthesia for arm fracture. 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 Allergies/Adverse Reactions: Allergy/AdvReac Type Severity Reaction Status Date / Time latex Allergy Severe Swelling Verified 12/05/17 17:05 Home Medications: Medication Instructions Recorded Iron 10/18/17 10/18/17 Acyclovir [Zovirax 200 mg (*)] 500 mg PO DAILY 12/05/17 Visit Medications: Generic Name Dose Route Start Last Admin Trade Name Freq PRN Reason Stop Dose Admin Ammonia (Aromatic Spirit) 1 each 12/05/17 17:04 Ammonia Aromatic IH 12/15/17 17:03 ONCE PRN Fainting Fentanyl 50 mcg 12/06/17 07:41 12/06/17 07:55 Sublimaze IVP 12/16/17 07:40 50 mcg Q4HRS PRN Administration Pain, Severe Unable to Take PO Lactated Ringer's 1,000 mls @ 0 mls/hr 12/05/17 17:04 Lr IV 12/06/17 17:03 PRN PRN SEE PROTOCOL CONDITIONS Protocol Per Protocol Oxytocin/Lactated Ringer's 1,000 mls @ 0 mls/hr 12/05/17 17:04 Pitocin 20 Units/Lr (Premix) IV PRN PRN Post bleeding Wide Open Lactated Ringer's 500 mls @ 500 mls/hr 12/05/17 22:50 Lr IV 12/06/17 22:51 PRN PRN Maternal Hypotension Oxytocin/Lactated Ringer's 500 mls @ 0 mls/hr 12/05/17 23:00 12/06/17 05:56 Pitocin 30 Units/Lr (Premix) IV 06/03/18 22:59 500 mls CONT DAVE Administration Protocol Per Protocol Fentanyl 200 mcg/ Bupivacaine 100 mls @ 0 mls/hr 12/06/17 10:30 HCl 20 ml/ Sodium Chloride EP 12/16/17 10:29 CONT DAVE Protocol As Directed Ibuprofen 600 mg 12/05/17 17:04 Motrin PO ONCE PRN post , pain Lidocaine HCl 300 mg 12/05/17 17:04 Lidocaine Hcl 1% SC 06/03/18 17:03 ONCE PRN episiotomy Magnesium Sulfate 454 gm 12/05/17 17:04 Epsom Salt TP 06/03/18 17:03 Q1H PRN perineal discomfort Misoprostol 800 - 1,000 mcg 12/05/17 17:04 Cytotec PO 06/03/18 17:03 ONCE PRN Vaginal Atony/Bleeding Misoprostol 100 mcg 12/06/17 04:00 Cytotec PO 06/04/18 03:59 Q4H [facility] [place] Oil 118 ml 12/05/17 17:04 Sweet Oil MISC 06/03/18 17:03 ONCE PRN perineal massage Terbutaline Sulfate 0.25 mg 12/05/17 17:04 Brethine IV 06/03/18 17:03 ONCE PRN Tachysystole Discontinued Medications Generic Name Dose Route Start Last Admin Trade Name Freq PRN Reason Stop Dose Admin Acetaminophen 1,000 mg 12/05/17 21:30 12/05/17 21:39 Tylenol PO 12/05/17 21:31 1,000 mg ONCE ONE Administration Bupivacaine HCl Confirm 12/06/17 09:43 Sensorcaine 0.25% Sdv Administered 12/06/17 09:44 Dose 30 ml .ROUTE .STK-MED ONE Fentanyl 50 mcg 12/05/17 23:15 12/05/17 23:46 Sublimaze IVP 12/05/17 23:16 50 mcg ONCE ONE Administration Misoprostol 100 mcg 12/05/17 17:04 12/06/17 00:25 Cytotec PO 06/03/18 17:03 100 mcg QID DAVE Administration Phenylephrine HCl Confirm 12/06/17 09:43 Neosynephrine Administered 12/06/17 09:44 Dose 1,000 mcg .ROUTE .STK-MED ONE - Anesthesia History Response to Local Anesthetics: Normal (Patient's mother thinks that local anesthetics have a shorter duration.) Anesthesia & Operative History: No Prior Problems Family Anesthesia History: Negative - Social History Substance Use/Abuse: Tobacco (Quit smoking with this .) - Vital Signs Blood Pressure: 109/55 Heart Rate: 96 Height/Weight (Nursing): Height 164.47 cm Weight 64.41 kg - Focused Exam Neck exam: FROM Mallampati Score: Class 1 Mouth exam: normal dental/mouth exam Pulmonary: no respiratory distress Cardiovascular: regular rate and rhythym Labs: 12/05/17 17:45 Patient ABO/Rh O POSITIVE 12/05/17 17:45 - Plan Consent Signed and on Chart: Yes Patient/Guardian Understands and Agrees to Plan: Yes Urgent/Emergent Case: Leticia love completed preop but documented later for safe timely pt care
[2017-12-06] MEDS ORDERED: LR 500 ML IV SCH (11:00)
[2017-12-06] MEDS ORDERED: fentaNYL 2MCG/ML/BUP 0.1% RTU 100 ML EP SCH (11:00)
--- NOTE | 2017-12-06 11:04 | POSTANESTH ---
Post Anesthetic Evaluation Cardiovascular Status: Normal, Stable Respiratory Status: Normal, Stable, Similar to Pre-op Cond. Level of Consciousness/Mental Status: Can Participate in Eval, Alert and Oriented Pain Control: Adequate, Prn Tx Ordered Nausea/Vomiting Control: Adequate, Prn Tx Ordered Complications Possibly Related to Anesthesia: None Noted
--- NOTE | 2017-12-06 11:31 | OBPROG ---
Labor Progress Note Assessment/Plan: Assessment: [id number] with IUP@ 39-4wks IOL 2/2 IUGR with abnormal dopplers cat 1 FHR tracing GBS negative Plan: cont pitocin IOL reassess 2-4hr/PRN Subjective/Intrapartum Course: 12/06/17 10:38 pt doing well, denies any pain at this time. She requested pitocin to be turned off. We discussed need for pitocin and gray balloon due to cervical exam. Pt agreeable with placement under fentanyl. Pts mother @ BS and supportive. 12/06/17 11:29 Pt doing well, she is comfortable with CHRISTIN. She denies any pain or pressure. FOB and pts mother @ BS and supportive. Objective: 12/05/17 17:45 Patient ABO/Rh O POSITIVE 12/05/17 17:45 Temp Pulse Resp BP Pulse Ox 96 109/55 L 12/06/17 11:04 12/06/17 11:04 - SVE Dilation (cm): 3 Effacement (%): 75 Station: -3 - Contraction Pattern Assessment Current Contraction Pattern: Irregular - FHR Assessment Tirado FHR (bpm): 135 FHR Pattern Variability: Moderate FHR Category: 1 - Procedures Non-surgical Procedures: Other (Specify) (gray balloon with 40mL placed) Oxytocin Orders Assessment - Pre-Induction/Augmentation Assessment Presentation: Vertex Gestational Age: 39 week(s) and 3 day(s) ICD10 Worksheet Patient Problems: Problems Problem Status Onset uterine contractions Acute
--- NOTE | 2017-12-06 15:26 | OBPROG ---
Labor Progress Note Assessment/Plan: Assessment: [id number] with IUP@ 39-4wks IOL 2/2 IUGR with abnormal dopplers cat 1 FHR tracing GBS negative AROM- clear Plan: cont pitocin IOL reassess 2-4hr/PRN 12/06/17 15:25 Subjective/Intrapartum Course: 12/06/17 10:38 pt doing well, denies any pain at this time. She requested pitocin to be turned off. We discussed need for pitocin and gray balloon due to cervical exam. Pt agreeable with placement under fentanyl. Pts mother @ BS and supportive. 12/06/17 11:29 Pt doing well, she is comfortable with CHRISTIN. She denies any pain or pressure. FOB and pts mother @ BS and supportive. 12/06/17 15:25 Pt resting. denies any pain or pressure. She is comfortable with CHRISTIN. Objective: 12/05/17 17:45 Patient ABO/Rh O POSITIVE 12/05/17 17:45 Temp Pulse Resp BP Pulse Ox 96 109/55 L 12/06/17 11:04 12/06/17 11:04 - SVE Dilation (cm): 3 Effacement (%): 50 Station: -2 Membranes: AROM Amniotic Fluid Color: Clear - Contraction Pattern Assessment Current Contraction Pattern: Irregular - Procedures Non-surgical Procedures: Other (Specify) (gray balloon with 40mL placed) Oxytocin Orders Assessment - Pre-Induction/Augmentation Assessment Presentation: Vertex Gestational Age: 39 week(s) and 3 day(s) ICD10 Worksheet Patient Problems: Problems Problem Status Onset uterine contractions Acute
--- NOTE | 2017-12-07 00:03 | OBPROG ---
Labor Progress Note Assessment/Plan: Assessment: [id number] with IUP@ 39-4wks IOL 2/2 IUGR with abnormal dopplers cat 1 FHR tracing GBS negative AROM- clear Plan: cont pitocin IOL reassess 2-4hr/PRN Subjective/Intrapartum Course: 12/06/17 10:38 pt doing well, denies any pain at this time. She requested pitocin to be turned off. We discussed need for pitocin and gray balloon due to cervical exam. Pt agreeable with placement under fentanyl. Pts mother @ BS and supportive. 12/06/17 11:29 Pt doing well, she is comfortable with CHRISTIN. She denies any pain or pressure. FOB and pts mother @ BS and supportive. 12/06/17 15:25 Pt resting. denies any pain or pressure. She is comfortable with CHRISTIN. 12/06/17 19:30 Pt doing well- denies any pain or pressure. She is comfortable with CHRISTIN. Objective: 12/05/17 17:45 Patient ABO/Rh O POSITIVE 12/05/17 17:45 Temp Pulse Resp BP Pulse Ox 96 109/55 L 12/06/17 11:04 12/06/17 11:04 - SVE Dilation (cm): 3 Effacement (%): 50 Station: -2 Membranes: AROM Amniotic Fluid Color: Clear - Contraction Pattern Assessment Current Contraction Pattern: Irregular - FHR Assessment [place] FHR (bpm): 135 FHR Pattern Variability: Moderate FHR Category: 1 - Procedures Non-surgical Procedures: Other (Specify) (gray balloon with 40mL placed) Oxytocin Orders Assessment - Pre-Induction/Augmentation Assessment Presentation: Vertex Gestational Age: 39 week(s) and 3 day(s) ICD10 Worksheet Patient Problems: Problems Problem Status Onset uterine contractions Acute
--- NOTE | 2017-12-07 00:12 | OBPROG ---
Labor Progress Note Assessment/Plan: Assessment: [id number] with IUP@ 39-4wks IOL 2/2 IUGR with abnormal dopplers cat 1 FHR tracing GBS negative AROM- clear MVUs >200 Plan: cont pitocin IOL will consult Shyann Villalobos for possible failed induction? Subjective/Intrapartum Course: 12/06/17 10:38 pt doing well, denies any pain at this time. She requested pitocin to be turned off. We discussed need for pitocin and gray balloon due to cervical exam. Pt agreeable with placement under fentanyl. Pts mother @ BS and supportive. 12/06/17 11:29 Pt doing well, she is comfortable with CHRISTIN. She denies any pain or pressure. FOB and pts mother @ BS and supportive. 12/06/17 15:25 Pt resting. denies any pain or pressure. She is comfortable with CHRISTIN. 12/06/17 19:30 Pt doing well- denies any pain or pressure. She is comfortable with CHRISTIN. 12/07/17 00:06 Pt doing ok- frustrated with the lack of cervical change. She is comfortable and is not having any pain or pressure, she has been resting. Objective: 12/05/17 17:45 Patient ABO/Rh O POSITIVE 12/05/17 17:45 Temp Pulse Resp BP Pulse Ox 96 109/55 L 12/06/17 11:04 12/06/17 11:04 - SVE Dilation (cm): 3 Effacement (%): 50 Station: -2 Membranes: AROM Amniotic Fluid Color: Clear - Contraction Pattern Assessment Current Contraction Pattern: Irregular - FHR Assessment [place] FHR (bpm): 165 (variables noted) FHR Pattern Variability: Minimal FHR Category: 2 - Procedures Non-surgical Procedures: IUPC, Other (Specify) (gray balloon with 40mL placed) Oxytocin Orders Assessment - Pre-Induction/Augmentation Assessment Presentation: Vertex Gestational Age: 39 week(s) and 3 day(s) ICD10 Worksheet Patient Problems: Problems Problem Status Onset uterine contractions Acute
--- NOTE | 2017-12-07 01:01 | OBDEL ---
<Shyann Villalobos D - Last Filed: 12/07/17 01:54> Info Type: Primary Presentation at Delivery: Vertex L&D Analgesia/Anesthesia Type: Epidural GBS+: No Intrapartum Medications: Generic Name Dose Route Start Last Admin Trade Name Chun PRN Reason Stop Dose Admin Fentanyl 50 mcg 12/06/17 07:41 12/06/17 07:55 Sublimaze IVP 12/16/17 07:40 50 mcg Q4HRS PRN Administration Pain, Severe Unable to Take PO Oxytocin/Lactated Ringer's 500 mls @ 0 mls/hr 12/05/17 23:00 12/06/17 05:56 Pitocin 30 Units/Lr (Premix) IV 06/03/18 22:59 500 mls CONT DAVE Administration Protocol Per Protocol Fentanyl 200 mcg/ Bupivacaine 100 mls @ 0 mls/hr 12/06/17 10:30 12/06/17 23: 16 HCl 20 ml/ Sodium Chloride EP 12/16/17 10:29 100 mls CONT DAVE Administration Protocol As Directed Cefazolin Sodium/Dextrose 100 mls @ 200 mls/hr 12/07/17 01:38 12/07/17 01:48 Ancef 2 Gm IV 12/07/17 02:07 100 mls ONCALL ONE Administration Protocol Discontinued Medications Generic Name Dose Route Start Last Admin Trade Name Chun PRN Reason Stop Dose Admin Acetaminophen 1,000 mg 12/05/17 21:30 12/05/17 21:39 Tylenol PO 12/05/17 21:31 1,000 mg ONCE ONE Administration Fentanyl 50 mcg 12/05/17 23:15 12/05/17 23:46 Sublimaze IVP 12/05/17 23:16 50 mcg ONCE ONE Administration Misoprostol 100 mcg 12/05/17 17:04 12/06/17 00:25 Cytotec PO 06/03/18 17:03 100 mcg QID DAVE Administration Misoprostol 100 mcg 12/06/17 04:00 12/06/17 17:39 Cytotec PO 06/04/18 03:59 Not Given Q4H DAVE Indications for Delivery: Growth Restriction w/Abnormal Doppler studies Operative Report - Delivery Pre-op Diagnoses: IUP at 39+ wks with arrest of dilation, IUGR Post-op Diagnoses: same, delivered History of Prior Section: No Number of Prior Sections: 0 Nulliparous Prior to Delivery: Yes Indications for Current Section: Arrest of Dilation Procedure: Unscheduled, Low Transverse Surgeon: Shyann Villalobos Mica Splitter: Lidia Vera Anesthesiologist: García Bell Specimen(s)/Path: Placenta Data [place] Delivery Date: 12/07/17 Sex of : Female ICD10 Worksheet Patient Problems: Problems Problem Status Onset Arrested labor Acute delivery delivered Acute IUGR, Acute uterine contractions Acute - ICD10 Problem Qualifiers (1) Arrested labor (2) IUGR, <Lidia Vera - Last Filed: 12/07/17 03:29> Info Type: Primary Presentation at Delivery: Vertex L&D Analgesia/Anesthesia Type: Epidural, IV Narcotics GBS+: No Intrapartum Medications: Generic Name Dose Route Start Last Admin Trade Name Freq PRN Reason Stop Dose Admin Fentanyl 50 mcg 12/06/17 07:41 12/06/17 07:55 Sublimaze IVP 12/16/17 07:40 50 mcg Q4HRS PRN Administration Pain, Severe Unable to Take PO Oxytocin/Lactated Ringer's 500 mls @ 0 mls/hr 12/05/17 23:00 12/06/17 05:56 Pitocin 30 Units/Lr (Premix) IV 06/03/18 22:59 500 mls CONT DAVE Administration Protocol Per Protocol Fentanyl 200 mcg/ Bupivacaine 100 mls @ 0 mls/hr 12/06/17 10:30 12/06/17 23: 16 HCl 20 ml/ Sodium Chloride EP 12/16/17 10:29 100 mls CONT DAVE Administration Protocol As Directed Discontinued Medications Generic Name Dose Route Start Last Admin Trade Name Freq PRN Reason Stop Dose Admin Acetaminophen 1,000 mg 12/05/17 21:30 12/05/17 21:39 Tylenol PO 12/05/17 21:31 1,000 mg ONCE ONE Administration Fentanyl 50 mcg 12/05/17 23:15 12/05/17 23:46 Sublimaze IVP 12/05/17 23:16 50 mcg ONCE ONE Administration Misoprostol 100 mcg 12/05/17 17:04 12/06/17 00:25 Cytotec PO 06/03/18 17:03 100 mcg QID DAVE Administration Misoprostol 100 mcg 12/06/17 04:00 07/26/18 17:39 Cytotec PO 06/04/18 03:59 Not Given Q4H DAVE - Hospital Course Intrapartum: 12/06/17 10:38 pt doing well, denies any pain at this time. She requested pitocin to be turned off. We discussed need for pitocin and gray balloon due to cervical exam. Pt agreeable with placement under fentanyl. Pts mother @ BS and supportive. 12/06/17 11:29 Pt doing well, she is comfortable with CHRISTIN. She denies any pain or pressure. FOB and pts mother @ BS and supportive. 12/06/17 15:25 Pt resting. denies any pain or pressure. She is comfortable with CHRISTIN. 12/06/17 19:30 Pt doing well- denies any pain or pressure. She is comfortable with CHRISTIN. 12/07/17 00:06 Pt doing ok- frustrated with the lack of cervical change. She is comfortable and is not having any pain or pressure, she has been resting. Indications for Delivery: Growth Restriction w/Abnormal Doppler studies Vaginal Delivery - Labor and Delivery Onset of Contractions Type: Induced Non-surgical Procedures: IUPC, Other (Specify) (gray balloon with 40mL placed) Delivery Comment: . Operative Report - Delivery Indications for Current Section: Arrest of Dilation Procedure: Unscheduled, Low Transverse Complications: Nucal Cord Specimen(s)/Path: Placenta EBL: [address] [place] Data SKIP: 12/09/17 Gestational Age: 39 week(s) and 5 day(s) [place] Delivery Time: 02:43 Sex of Infant: Female Score (1 Min): 5 Score (5 Min): 9 ICD10 Worksheet - ICD10 Problem Qualifiers (1) Arrested labor (2) IUGR, (3) delivery delivered
--- NOTE | 2017-12-07 01:34 | OBPROG ---
Labor Progress Note Assessment/Plan: Assessment: IUP at 39+wks with arrest of dilation despite adequate ctxns per IUPC for hours failed induction for IUGR - EFW 7% Cat I tracing currently - was Cat II approx 1 hour ago with variables and some lates but improved after pit stopped current exam unchanged from MW exam of /-2 with caput - still with good ctxns off pit but decreasing frequency Plan: Consent forms signed, awaiting anesth to proceed with c/s. Will give preop abx 12/07/17 01:29 Subjective/Intrapartum Course: 12/06/17 10:38 pt doing well, denies any pain at this time. She requested pitocin to be turned off. We discussed need for pitocin and gray balloon due to cervical exam. Pt agreeable with placement under fentanyl. Pts mother @ BS and supportive. 12/06/17 11:29 Pt doing well, she is comfortable with CHRISTIN. She denies any pain or pressure. FOB and pts mother @ BS and supportive. 12/06/17 15:25 Pt resting. denies any pain or pressure. She is comfortable with CHRISTIN. 12/06/17 19:30 Pt doing well- denies any pain or pressure. She is comfortable with CHRISTIN. 12/07/17 00:06 Pt doing ok- frustrated with the lack of cervical change. She is comfortable and is not having any pain or pressure, she has been resting. 12/07/17 01:33 reviewed lack of progress with the pt/partner/and mom and disc details of the c/ s. reviewed the consent form. rechecked cx and no change. pt understands and is not too upset over c/s - ready to be done. Objective: 12/05/17 17:45 Patient ABO/Rh O POSITIVE 12/05/17 17:45 Temp Pulse Resp BP Pulse Ox 96 109/55 L 12/06/17 11:04 12/06/17 11:04 - SVE Dilation (cm): 3 Effacement (%): 75 Station: -2 Membranes: AROM Amniotic Fluid Color: Clear - Contraction Pattern Assessment Current Contraction Pattern: Irregular (off pit now and ctxns strong but >5 min) - FHR Assessment [place] FHR (bpm): 140 FHR Pattern Variability: Moderate FHR Category: 1 - Procedures Non-surgical Procedures: IUPC, Other (Specify) (gray balloon with 40mL placed) Oxytocin Orders Assessment - Pre-Induction/Augmentation Assessment Presentation: Vertex Gestational Age: 39 week(s) and 3 day(s) ICD10 Worksheet Patient Problems: Problems Problem Status Onset Arrested labor Acute IUGR, Acute uterine contractions Acute
[2017-12-07] MEDS ORDERED: ceFAZolin 2 GM/DEXTROSE 100 ML IV ONE (01:38)
[2017-12-07] MEDS ORDERED: DEXAMETHASONE 4 MG/ML VIAL ONE (02:16)
[2017-12-07] MEDS ORDERED: ONDANSETRON 4 MG/2 ML VIAL ONE (02:16)
[2017-12-07] MEDS ORDERED: PHENYLEPHRINE HCL 100 MCG/ML SYR ONE ×2 (02:18→02:53)
[2017-12-07] MEDS ORDERED: OXYTOCIN 100 UNITS/10 ML VIAL ONE (02:22)
[2017-12-07] MEDS ORDERED: LIDO/EPI 2% **for epidural** 20 ML SDV ONE (02:28)
[2017-12-07] MEDS ORDERED: PROPOFOL 200 MG/20 ML VIAL ONE (02:39)
[2017-12-07] MEDS ORDERED: METOCLOPRAMIDE 10 MG/2 ML VIAL IVP PRN (02:55)
[2017-12-07] MEDS ORDERED: ONDANSETRON 4 MG/2 ML VIAL IVP PRN (02:55)
--- NOTE | 2017-12-07 03:41 | POSTANESTH ---
Post Anesthetic Evaluation Cardiovascular Status: Normal, Stable Respiratory Status: Normal, Stable Level of Consciousness/Mental Status: Can Participate in Eval, Alert and Oriented Pain Control: Adequate, Prn Tx Ordered Nausea/Vomiting Control: Adequate, Prn Tx Ordered Complications Possibly Related to Anesthesia: None Noted
[2017-12-07] MEDS ORDERED: LACTULOSE 20 GM/30 ML UDCUP PO PRN (03:48)
[2017-12-07] MEDS ORDERED: MAGNESIUM HYDROXIDE 30 ML UDCUP PO PRN (03:48)
[2017-12-07] MEDS ORDERED: BISACODYL 10 MG SUPP PR PRN (03:48)
[2017-12-07] MEDS ORDERED: POLYETHYLENE GLYCOL 3350 17 GM PKT PO PRN (03:48)
[2017-12-07] MEDS: KETOROLAC 30 MG/1 ML SDV IVP SCH ×4 (04:38→23:03)
[2017-12-07] MEDS ORDERED: IBUPROFEN 600 MG TAB PO SCH (06:00)
[2017-12-07] MEDS: ACETAMINOPHEN 325 MG TAB PO SCH ×3 (07:20→18:50)
[2017-12-07] MEDS: MISOPROSTOL 100 MCG TAB PO SCH ×2 (10:35→21:22)
[2017-12-07] MEDS: SENNOSIDES/DOCUSATE SODIUM TAB PO SCH ×2 (10:35→23:31)
[2017-12-07] MEDS ORDERED: LR 1,000 ML IV SCH (11:30)
--- NOTE | 2017-12-07 22:36 | OBPP ---
Progress Note Assessment/Plan: Assessment: g1 pod#0 s/p PLTCS breast feeding anemia Plan: iron routine post operative and post care 12/07/17 22:33 Subjective/ Course: 12/07/17 22:34 patient is doing well. pain is well controlled. normal lochia. denies headache and changes in vision. ambulating. passing gas. denies headache and changes in vision. no concerns. Objective: 12/05/17 17:45 Patient ABO/Rh O POSITIVE 12/05/17 17:45 Temp Pulse Resp BP Pulse Ox 36.4 C 74 16 86/55 L 97 12/07/17 20:00 12/07/17 20:00 12/07/17 20:00 12/07/17 20:00 12/07/17 20:00 Physical Exam - Physical Exam Respiratory: chest non-tender, lungs clear, normal breath sounds Cardiac/Chest: normal peripheral pulses, regular rate, rhythm Abdomen: normal bowel sounds, non-tender Extremities: normal range of motion, non-tender, normal inspection, normal capillary refill Skin: normal color, warm/dry, other (incision covered) Neuro/Psych: no motor/sensory deficits, alert, normal mood/affect, oriented x 3
[2017-12-08] MEDS: ACETAMINOPHEN 325 MG TAB PO SCH ×5 (01:47→18:13)
[2017-12-08] MEDS: IBUPROFEN 600 MG TAB PO SCH ×4 (05:08→23:21)
[2017-12-08] MEDS: oxyCODONE IR 5 MG TAB PO PRN ×5 (06:49→21:40)
[2017-12-08] MEDS: SENNOSIDES/DOCUSATE SODIUM TAB PO SCH ×2 (08:22→20:56)
[2017-12-08] MEDS ORDERED: IRON POLYSAC/IRON HEME 28 MG TAB PO SCH (09:00)
--- NOTE | 2017-12-08 11:18 | OBPP ---
Progress Note Assessment/Plan: Assessment: g1 pod#1 s/p PLTCS breast feeding anemia Plan: continue iron bid Encourage ambulation routine post operative and post care 12/08/17 11:16 Subjective/ Course: 12/07/17 22:34 patient is doing well. pain is well controlled. normal lochia. denies headache and changes in vision. ambulating. passing gas. denies headache and changes in vision. no concerns. 12/08/17 11:16 Doing well this am. Pain fairly well controlled with oral pain meds. Tolerating reg diet and passing gas. Ambulating in room and voiding. VB WNL. Breast feeding going fine. No concerns. Objective: 12/08/17 02:45 Patient ABO/Rh O POSITIVE 12/05/17 17:45 Temp Pulse Resp BP Pulse Ox 36.6 C 97 16 90/57 L 96 12/08/17 08:00 12/08/17 08:00 12/08/17 08:00 12/08/17 08:00 12/08/17 08:00 Uterine Position/Fundal Height: Umbilicus -1 Uterine Tone: Firm Physical Exam - Physical Exam EENT: PERRL/EOMI Neck: non-tender Respiratory: normal breath sounds Cardiac/Chest: normal peripheral pulses, regular rate, rhythm, edema (snl lower ext edema) Abdomen: normal bowel sounds, incision (well approximated. Steri strips intact) Extremities: normal range of motion Back: Normal inspection Skin: normal color, warm/dry Neuro/Psych: no motor/sensory deficits, alert, normal mood/affect, oriented x 3
[2017-12-08] MEDS: FERROUS SULFATE 325 MG TAB PO SCH (20:56)
[2017-12-09] MEDS: ACETAMINOPHEN 325 MG TAB PO SCH ×5 (01:41→22:27)
[2017-12-09] MEDS: IBUPROFEN 600 MG TAB PO SCH ×3 (05:35→19:12)
[2017-12-09] MEDS: SENNOSIDES/DOCUSATE SODIUM TAB PO SCH ×2 (09:08→19:12)
[2017-12-09] MEDS: oxyCODONE IR 5 MG TAB PO PRN ×3 (09:09→21:07)
[2017-12-09] MEDS: FERROUS SULFATE 325 MG TAB PO SCH ×2 (09:09→19:12)
--- NOTE | 2017-12-09 19:52 | OBPP ---
Progress Note Assessment/Plan: Assessment: g1 pod#2 s/p PLTCS breast feeding anemia Plan: iron routine post operative and post care 12/09/17 19:47 Subjective/ Course: 12/07/17 22:34 patient is doing well. pain is well controlled. normal lochia. denies headache and changes in vision. ambulating. passing gas. denies headache and changes in vision. no concerns. 12/08/17 11:16 Doing well this am. Pain fairly well controlled with oral pain meds. Tolerating reg diet and passing gas. Ambulating in room and voiding. VB WNL. Breast feeding going fine. No concerns. 12/09/17 19:48 patient is doing well. pain is well controlled. normal lochia. denies headache or changes in vision. passing gas. has not had a bowel movement yet. breast feeding is going well. Objective: 12/08/17 02:45 Patient ABO/Rh O POSITIVE 12/05/17 17:45 Temp Pulse Resp BP Pulse Ox 36.2 C 69 16 91/54 L 96 12/09/17 09:15 12/09/17 09:15 12/09/17 09:15 12/09/17 09:15 12/09/17 09:15 Physical Exam - Physical Exam Neck: non-tender, full range of motion, supple Respiratory: chest non-tender, lungs clear, normal breath sounds Cardiac/Chest: normal peripheral pulses, regular rate, rhythm Abdomen: normal bowel sounds, non-tender, other (fundus firm and non tender) Extremities: normal range of motion, non-tender, normal inspection, normal capillary refill Skin: normal color, warm/dry, other (inciscion clean dry and intact) Neuro/Psych: no motor/sensory deficits, alert, normal mood/affect, oriented x 3
[2017-12-10] MEDS: IBUPROFEN 600 MG TAB PO SCH ×2 (01:24→07:24)
[2017-12-10] MEDS: SENNOSIDES/DOCUSATE SODIUM TAB PO SCH (07:24)
[2017-12-10] MEDS: FERROUS SULFATE 325 MG TAB PO SCH (07:24)
[2017-12-10] MEDS: oxyCODONE IR 5 MG TAB PO PRN (07:24)
[2017-12-10 07:33] VITALS: BP 100/60
[2017-12-10] MEDS: ACETAMINOPHEN 325 MG TAB PO SCH (07:54)
--- NOTE | 2017-12-10 09:37 | OBGCSDC ---
General Delivery Information - General Info : 1 Para: 1 Abortions: 0 Type: Primary L&D Analgesia/Anesthesia Type: Epidural Admission Date: 12/05/17 Labs: Patient ABO/Rh O POSITIVE 12/05/17 17:45 Hct 24.8 % (38.0-47.0) L 12/08/17 02:45 - Hospital Course Intrapartum: 12/06/17 10:38 pt doing well, denies any pain at this time. She requested pitocin to be turned off. We discussed need for pitocin and gray balloon due to cervical exam. Pt agreeable with placement under fentanyl. Pts mother @ BS and supportive. 12/06/17 11:29 Pt doing well, she is comfortable with CHRISTIN. She denies any pain or pressure. FOB and pts mother @ BS and supportive. 12/06/17 15:25 Pt resting. denies any pain or pressure. She is comfortable with CHRISTIN. 12/06/17 19:30 Pt doing well- denies any pain or pressure. She is comfortable with CHRISTIN. 12/07/17 00:06 Pt doing ok- frustrated with the lack of cervical change. She is comfortable and is not having any pain or pressure, she has been resting. : 12/07/17 22:34 patient is doing well. pain is well controlled. normal lochia. denies headache and changes in vision. ambulating. passing gas. denies headache and changes in vision. no concerns. 12/08/17 11:16 Doing well this am. Pain fairly well controlled with oral pain meds. Tolerating reg diet and passing gas. Ambulating in room and voiding. VB WNL. Breast feeding going fine. No concerns. 12/09/17 19:48 patient is doing well. pain is well controlled. normal lochia. denies headache or changes in vision. passing gas. has not had a bowel movement yet. breast feeding is going well. 12/10/17 09:33 Pt is doing well. She has good pain control with few Oxycodone, and Ibuprofen and Tylenol. She is ambulating, voiding without difficulty and has min lochia. Breast feeding is going well, some nipple bruising and she is working on the latch. They are ready to d/c home. Vaginal - Delivery Provider Delivery Physician/CNM: Lidia Vera - Diagnosis Labor: Induced Rupture of Membranes Type: Artificial Amniotic Fluid Color: Clear Laceration: 2nd Degree Repair: 3-0, [place] Delivery Events: Retained Placenta, Other (Specify) - Procedures Non-surgical Procedures: IUPC, Other (Specify) (gray balloon with 40mL placed) - Delivery Providers Surgeon: Shyann Villalobos Automotive Mechanic: Lidia Vera Anesthesiologist: García Bell - Delivery Indications for Current Section: Arrest of Dilation Non-surgical Procedures: IUPC, Other (Specify) (gray balloon with 40mL placed) Surgical Procedures: Unscheduled, Low Transverse Intra-op Complications: Nucal Cord EBL: 1000 Data SKIP: 12/09/17 Gestational Age: 40 week(s) and 1 day(s) [place] Delivery Date: 12/07/17 Delivery Time: 02:43 Sex of : Female Weight (gm): 2598 kg Score (1 Min): 5 Score (5 Min): 9 Discharge Information - Discharge Information Prescriptions: oxyCODONE IR [Oxycodone Ir (*)] 5 - 10 mg PO Q4HRS PRN #20 tab PRN Reason: Pain, Severe Ibuprofen [Motrin (*)] 600 mg PO Q6HRS #30 tab Ferrous Sulfate [Ferrous Sulf 325 MG (*)] 325 mg PO BID #60 tab Condition: Good Instruction/Follow Up: Two Weeks, Four Weeks, Six Weeks
--- NOTE | 2017-12-10 09:37 | OBPP ---
Progress Note Assessment/Plan: Assessment: 22 y/o POD #3 s/p LTCS secondary to arrest of dilation. Plan: Pt is doing well. D/c home today with Rx Oxycodone, and scheduled Tylenol and Ibuprofen. Follow-up @ [facility] 2, 4 and 6 weeks. Call with fever, heavy bleeding, drainage from incision or other concerns. 12/10/17 09:35 Subjective/ Course: 12/07/17 22:34 patient is doing well. pain is well controlled. normal lochia. denies headache and changes in vision. ambulating. passing gas. denies headache and changes in vision. no concerns. 12/08/17 11:16 Doing well this am. Pain fairly well controlled with oral pain meds. Tolerating reg diet and passing gas. Ambulating in room and voiding. VB WNL. Breast feeding going fine. No concerns. 12/09/17 19:48 patient is doing well. pain is well controlled. normal lochia. denies headache or changes in vision. passing gas. has not had a bowel movement yet. breast feeding is going well. 12/10/17 09:33 Pt is doing well. She has good pain control with few Oxycodone, and Ibuprofen and Tylenol. She is ambulating, voiding without difficulty and has min lochia. Breast feeding is going well, some nipple bruising and she is working on the latch. They are ready to d/c home. Objective: 12/08/17 02:45 Patient ABO/Rh O POSITIVE 12/05/17 17:45 Temp Pulse Resp BP Pulse Ox 36.5 C 63 18 100/60 98 12/10/17 07:32 12/10/17 07:32 12/10/17 07:32 12/10/17 07:32 12/10/17 07:32 Uterine Position/Fundal Height: Umbilicus -2 Uterine Tone: Firm Physical Exam - Physical Exam General Appearance: alert, no apparent distress Neck: non-tender, full range of motion, supple Respiratory: chest non-tender, lungs clear, normal breath sounds Cardiac/Chest: regular rate, rhythm Abdomen: normal bowel sounds, incision (c/d/i) Extremities: swelling (no), Kandice's sign (neg)
== END 2017-12-10 10:40 | disposition home or self-care (01) | DRG 765 ==
LOC: FLD 16:56 → FOB 12-07 05:54
PROVIDERS: ADMIT Obstetrics & Gynecology; ATTEND Obstetrics & Gynecology
PROC: 10907ZC Drainage of Amniotic Fluid, Therapeutic from Products of Conception, Via Natural or Artificial Opening (ICD-10-PCS; principal; 2017-12-07)
PROC: 3E033VJ Introduction of Other Hormone into Peripheral Vein, Percutaneous Approach (ICD-10-PCS; principal; 2017-12-07)
PROC: 10D00Z1 Extraction of Products of Conception, Low, Open Approach (ICD-10-PCS; principal; 2017-12-07)
PROC: 0U7C7ZZ Dilation of Cervix, Via Natural or Artificial Opening (ICD-10-PCS; principal; 2017-12-07)
DX: O62.1 Secondary uterine inertia (principal); O36.5930 Maternal care for other known or suspected poor fetal growth, third trimester, not applicable or unspecified; Z37.0 Single live birth; Z3A.39 39 weeks gestation of pregnancy
CPT/HCPCS: J0690; J1100; J1885; J2270; J2370; J2405; J2590; J2704; J3010; J3105

== ENCOUNTER 2018-06-24 12:39 | Emergency (ER) | payer OTHER ==
[2018-06-24] MEDS ORDERED: NS 1,000 ML IV ONE (14:14)
[2018-06-24 14:36] LABS: PLATELET COUNT 221 10^3/uL (150-400)
--- NOTE | 2018-06-24 14:36 | EDPHY ---
H & P Stated Complaint: dizzy blurred vision, sob Time Seen by Provider: 06/24/18 14:05 HPI/ROS: CHIEF COMPLAINT: Dizzy, headache, sore throat, nausea and diarrhea HISTORY OF PRESENT ILLNESS: Patient presents the ED with multiple complaints including dizziness, sore throat, headache, myalgias, nausea and diarrhea. The patient's GI symptoms began a week ago. She reportedly was seen at [facility] and had an unremarkable CT scan of the abdomen pelvis. The patient developed symptoms of sore throat, myalgias and headache over the past several days. The patient denies any melena or hematemesis. The patient denies significant past medical history aside from asthma. The patient denies any neck stiffness. She denies any acute numbness or weakness. She denies any recent travel outside the [facility] or antibiotic use. REVIEW OF SYSTEMS: A comprehensive 10 point review of systems is otherwise negative aside from elements mentioned in the history of present illness. Source: Patient Exam Limitations: No limitations - Medical/Surgical History Hx Asthma: Yes Hx Chronic Respiratory Disease: No Hx Diabetes: No Hx Cardiac Disease: No Hx Renal Disease: No Hx Cirrhosis: No Hx Alcoholism: No Hx HIV/AIDS: No Hx Splenectomy or Spleen Trauma: No Other PMH: Asthma, HX OF BACK injury( REALIGNMENT OF SPINE) - Chronic Back Pain , HX; OF HSV TYPE 2 ONE OUTBREAK IN 2016, HX: OF MIGRAINES - AT LEAST ONE x MONTH, anemia, hypoglycemia, anxiety, emerg c-sect 12/07/17 - Social History Smoking Status: Current every day smoker - Physical Exam Exam: General Appearance: Alert, no distress Eyes: Pupils equal and round no pallor or injection ENT, Mouth: Mucous membranes moist Respiratory: There are no retractions, lungs are clear to auscultation Cardiovascular: Regular rate and rhythm Gastrointestinal: Abdomen is soft and nontender, no masses, bowel sounds normal Neurological: A&O, normal motor function, normal sensory exam, normal cranial nerves Skin: Warm and dry, no rashes Musculoskeletal: Neck is supple nontender Extremities: symmetrical, full range of motion Constitutional: Initial Vital Signs Temperature (C) 36.5 C 06/24/18 12:43 Heart Rate 75 06/24/18 12:43 Respiratory Rate 16 06/24/18 12:43 Blood Pressure 128/70 H 06/24/18 12:43 O2 Sat (%) 98 06/24/18 12:43 O2 Delivery Mode Room Air Allergies/Adverse Reactions: latex Allergy (Severe, Verified 06/24/18 12:43) Swelling Home Medications: Medication Instructions Recorded Keflex 12/24/17 Ondansetron Odt [Zofran Odt] 4 mg PO Q4PRN PRN #20 tab 06/24/18 Medical Decision Making ED Course/Re-evaluation: Patient is nontoxic and well-appearing. She has a normal neurologic examination. She has no clinical evidence of meningitis. Patient's flu test is negative. Patient's urinalysis demonstrates no evidence of an infection. CBC and metabolic panel are unremarkable. Patient was treated with some IV Toradol and morphine. Re-evaluated the patient at 4:30 p.m.. Her complaints of headache, blurry vision and myalgias have entirely resolved. Do not feel the patient has symptoms consistent with meningitis. I am comfortable discharging the patient home at this point time with instructions to take ibuprofen as needed for pain. Believe the etiology of her symptoms is secondary to a viral syndrome. Patient is advised to return to the ED for markedly worsening symptoms or other concerns. Differential Diagnosis: Differential diagnosis considered includes viral syndrome, dehydration, metabolic derangement, urinary tract infection, influenza - Data Points Laboratory Results: Laboratory Results 06/24/18 14:25 06/24/18 14:25 06/24/18 06/24/18 06/24/18 14:56 14:25 14:25 WBC RBC Hgb Hct MCV MCH MCHC RDW Plt Count MPV Neut % (Auto) Lymph % (Auto) [place] % (Auto) Eos % (Auto) Baso % (Auto) Nucleat RBC Rel Count Absolute Neuts (auto) Absolute Lymphs (auto) Absolute Monos (auto) Absolute Eos (auto) Absolute Basos (auto) Absolute Nucleated RBC Immature Gran % Immature Gran # Sodium Potassium Chloride Carbon Dioxide Anion Gap BUN Creatinine Estimated GFR Glucose Calcium Beta HCG, Qual NEGATIVE Urine Color YELLOW Urine Appearance CLEAR Urine pH 7.0 (5.0-7.5) Ur Specific [place] 1.019 (1.002-1.030) Urine Protein NEGATIVE (NEGATIVE) Urine Ketones TRACE H (NEGATIVE) Urine Blood NEGATIVE (NEGATIVE) Urine Nitrate NEGATIVE (NEGATIVE) Urine Bilirubin NEGATIVE (NEGATIVE) Urine Urobilinogen NEGATIVE EU EU (0.2-1.0) Ur Leukocyte Esterase NEGATIVE (NEGATIVE) Urine RBC 1-3 /hpf /hpf (0-3) Urine WBC 1-3 /hpf /hpf (0-3) Ur Epithelial Cells TRACE /lpf /lpf (NONE-1+) Urine Mucus 1+ /lpf /lpf (NONE-1+) Urine Glucose NEGATIVE (NEGATIVE) Nasal Influenza A PCR NEGATIVE FOR FLU A (NEGATIVE) Nasal Influenza B PCR NEGATIVE FOR FLU B (NEGATIVE) 06/24/18 06/24/18 14:25 14:25 WBC 5.30 10^3/uL 10^3/uL (3.80-9.50) RBC 4.95 10^6/uL 10^6/uL (4.18-5.33) Hgb 13.6 g/dL g/dL (12.6-16.3) Hct 41.9 % % (38.0-47.0) MCV 84.6 fL fL (81.5-99.8) MCH 27.5 pg L pg (27.9-34.1) MCHC 32.5 g/dL g/dL (32.4-36.7) RDW 17.4 % H % (11.5-15.2) Plt Count 221 10^3/uL 10^3/uL (150-400) MPV 11.4 fL fL (8.7-11.7) Neut % (Auto) 54.1 % % (39.3-74.2) Lymph % (Auto) 30.0 % % (15.0-45.0) [place] % (Auto) 8.5 % % (4.5-13.0) Eos % (Auto) 6.4 % % (0.6-7.6) Baso % (Auto) 0.8 % % (0.3-1.7) Nucleat RBC Rel Count 0.0 % % (0.0-0.2) Absolute Neuts (auto) 2.87 10^3/uL 10^3/uL (1.70-6.50) Absolute Lymphs (auto) 1.59 10^3/uL 10^3/uL (1.00-3.00) Absolute Monos (auto) 0.45 10^3/uL 10^3/uL (0.30-0.80) Absolute Eos (auto) 0.34 10^3/uL 10^3/uL (0.03-0.40) Absolute Basos (auto) 0.04 10^3/uL 10^3/uL (0.02-0.10) Absolute Nucleated RBC 0.00 10^3/uL 10^3/uL (0-0.01) Immature Gran % 0.2 % % (0.0-1.1) Immature Gran # 0.01 10^3/uL 10^3/uL (0.00-0.10) Sodium 137 mEq/L mEq/L (135-145) Potassium 3.7 mEq/L mEq/L (3.5-5.2) Chloride 108 mEq/L mEq/L (97-110) Carbon Dioxide 21 mEq/l L mEq/l (22-31) Anion Gap 8 mEq/L mEq/L (6-14) BUN 8 mg/dL mg/dL (7-23) Creatinine 0.6 mg/dL mg/dL (0.6-1.0) Estimated GFR > 60 Glucose 89 mg/dL mg/dL (70-100) Calcium 9.4 mg/dL mg/dL (8.5-10.4) Beta HCG, Qual Urine Color Urine Appearance Urine pH Ur Specific [place] Urine Protein Urine Ketones Urine Blood Urine Nitrate Urine Bilirubin Urine Urobilinogen Ur Leukocyte Esterase Urine RBC Urine WBC Ur Epithelial Cells Urine Mucus Urine Glucose Nasal Influenza A PCR Nasal Influenza B PCR Medications Given: Discontinued Medications Sodium Chloride (Ns) 1,000 mls @ 0 mls/hr IV ONCE ONE; Wide Open PRN Reason: Protocol Stop: 06/24/18 14:15 Last Admin: 06/24/18 14:25 Dose: 1,000 mls Ketorolac Tromethamine (Toradol) 30 mg IVP EDNOW ONE Stop: 06/24/18 15:42 Last Admin: 06/24/18 15:49 Dose: 30 mg Morphine Sulfate (Morphine) 4 mg IVP EDNOW ONE Stop: 06/24/18 15:42 Last Admin: 06/24/18 15:50 Dose: 4 mg Departure - Departure Disposition: Home, Routine, Self-Care Clinical Impression: Viral syndrome Condition: Good Instructions: Viral Syndrome (ED) Additional Instructions: 1. Take Ibuprofen or Motrin 600 mg by mouth three times a day. 2. Zofran as needed for nausea 3. Please return to the ED for markedly worsening symptoms or other concerns.
[2018-06-24] MEDS ORDERED: KETOROLAC 30 MG/1 ML SDV IVP ONE (15:41)
[2018-06-24 16:46] VITALS: BP 112/83
== END 2018-06-24 16:50 | disposition home or self-care (01) ==
DX: B34.9 Viral infection, unspecified (principal); E86.9 Volume depletion, unspecified
CPT/HCPCS: 96374; J1885; J2270

== ENCOUNTER → 2018-07-08 | Outpatient (CLI) | payer OTHER | LOC: BMCIMAGING 08:59 | PROVIDERS: ATTEND Family Medicine | DX: S29.9XXA Unspecified injury of thorax, initial encounter (principal) | CPT/HCPCS: 71101-PO ==